=== PATIENT | male | born 1965 | race Caucasian/White ===

== ENCOUNTER 2020-11-16 09:10 | Outpatient (CLI) | payer BC, SELFPAY ==
--- NOTE | ~2020-11-16 | XR_ITS ---
EXAMINATION: XR abdomen/kub 1V EXAM DATE: 11/16/2020 09:39 INDICATION: RT flank pain . TECHNIQUE: Frontal projection(s) of the abdomen for interpretation. There is no prior study for syl sneed. FINDINGS: There is expected amount of colonic stool and gas. No small bowel dilation, nonobstructiv e bowel gas pattern. Possible small right calyceal stone. There is a linear density projecting betwe en the right L2 and L3 transverse processes could be too far medial to be ureteral stone. This findin g has been indicated, marked on the examination for review, clinical correlation. There is no organ omegaly suspected. Moderate symmetric bilateral hip osteoarthritis. There is no free intraperitone al air. The lung bases are clear. IMPRESSION: Possible right nephrolithiasis. Linear right paraspinal calcification. If symptoms persis t, consider CT. Reviewed, dictated and finalized at location B. IMPRESSION: Possible right nephrolithiasis. Linear right paraspinal calcificati on. If symptoms persist, consider CT.
== END 2020-11-16 09:11 | disposition home or self-care (01) ==
LOC: ANHIMG 09:18
PROVIDERS: PCP Family Medicine; Visit Provider Nurse Practitioner Adult Health
DX: R10.9 Unspecified abdominal pain (principal)
CPT/HCPCS: 74018

== ENCOUNTER 2020-12-09 09:05 | Outpatient (CLI) | payer BC, SELFPAY ==
--- NOTE | ~2020-12-09 | CT_ITS ---
EXAMINATION: CT abdomen pelvis wo con DATE: 12/09/2020 09:32 INDICATION: Right ureteral stone TECHNIQUE: Computed tomography (CT) of the abdomen and pelvis was performed without intravenous contr ast. The dose-length product was 442.08 mGy-cm. Automated exposure control and iterative reconstructi on technique were employed. COMPARISON: None. FINDINGS: Lung bases are unremarkable. Heart size normal. No significant pleural or pericardial effus ion. The liver, spleen, pancreas, adrenal glands and kidneys are unremarkable. There is a liver cyst right hepatic lobe. Nonobstructive bowel gas pattern. Colonic diverticulosis without evidence for div erticulitis. No free air or free fluid. There is a 2 mm nonobstructing right renal stone. No left yumiko al stones. No ureteral stones or hydronephrosis. No abnormal pelvic masses or fluid collections. IMPRESSION: 1. Nonobstructing right nephrolithiasis. Reviewed, dictated and finalized at location A.
== END 2020-12-09 09:06 | disposition home or self-care (01) ==
LOC: ANHIMG 09:08
PROVIDERS: PCP Family Medicine; Visit Provider Nurse Practitioner Adult Health
DX: N20.1 Calculus of ureter (principal); N20.0 Calculus of kidney
CPT/HCPCS: 74176

== ENCOUNTER 2023-11-07 14:45 | Outpatient (CLI) | payer BC, SELFPAY ==
--- NOTE | ~2023-11-07 | XR_ITS ---
XR abdomen/kub 1V Ordering provider: Maria A Cummins PA-C History: . KIDNEY STONES ROUTINE FU . Comparison: None. FINDINGS: BOWEL: Nonobstructive bowel gas pattern. ORGANOMEGALY: None. SIGNIFICANT PATHOLOGIC CALCIFICATIONS: None. OTHER: No free air is seen under the diaphragm. IMPRESSION: NO ACUTE ABDOMINAL FINDINGS. No definite stones. Reviewed, dictated and finalized at location A.
== END 2023-11-07 14:46 | disposition home or self-care (01) ==
PROVIDERS: PCP Family Medicine; Visit Provider Physician Assistant
DX: N20.0 Calculus of kidney (principal)
CPT/HCPCS: 74018